=== PATIENT | female | born 1995 | race Caucasian/White ===

== ENCOUNTER 2024-06-19 16:32 | Emergency (ER) | payer BC, SELFPAY ==
[2024-06-19 16:48] VITALS: BP 137/91; PULSE 94; RESP 18; TEMP 37.2; O2SAT 95; BMI 37.9
--- NOTE | 2024-06-19 16:48 | ED_ITS ---
HPI - General Adult General Date Seen: 06/19/24 Chief complaint: Diabetic Related Problem Stated complaint: Low blood sugar throughout the day. Time Seen by Provider: 06/19/24 16:44 History of Present Illness HPI narrative: 28-year-old female with a past medical history of elevated BMI, PCOS, depression/anxiety, snoring, hyperhidrosis, it try adenitis a pretty the. She is on some Mag low tide and metformin. It looks like she gets primary care through the [facility]. Records from [facility] show that she called the [facility] triage nurse. She was feeling dizzy and shaky today. She has a glucometer. It red glucose of 45 and then 54. She apparently has type 2 diabetes. She is on metformin and Ozempic. She does not think she is . She apparently had low blood sugar around noon so ate some fruit and drink juice. Blood sugar dropped low again around 1. She has never had low blood sugar readings before. She is actually due to change her CGM monitor in 3 days. She was feeling normally this morning and actually was giving a big presentation. At around 11:30 a.m. just after fishing her presentation, she was feeling fine but her CGM alerted her that her sugar was 54. She ate some berries and had some juice. Subsequently her CGM reported that her blood sugar was still running a bit low. She ate some lunch and sugar did come up. Just before lunch she started to feel little bit dizzy and shaky, but she is not sure if that shakiness was from low blood sugar or if it was just from adrenaline wearing off after presentation. Later this afternoon around 330 or so her CGM again alerted her that her sugar was low. She recalls that was she was feeling fine before this EG M alert but after it she began to feel dizzy and shaky. She had some sweet treat since juice again and her sugar came up but then dropped down again to about 45 or 50. She called her clinic and was told to come here to the ER with concern for hypoglycemia. She has been on Ozempic and metformin for weight control. She is not actually diabetic but she is prediabetic. She does not take any insulin or any other diabetes medicines that would cause hypoglycemia. She has been healthy and well lately. No recent illness, cough, fever, shortnes s of breath, chest pain, vomiting, diarrhea, or any unusual symptoms. Related Data Home Medications ?Medication ?Instructions ?Recorded ?Confirmed citalopram 20 mg tablet 20 mg PO DAILY 06/19/24 06/19/24 metformin 500 mg tablet 500 mg PO DAILY 06/19/24 06/19/24 omeprazole 20 mg capsule,delayed 20 mg PO DAILY 06/19/24 06/19/24 release oxybutynin chloride 5 mg 5 mg PO DAILY 06/19/24 06/19/24 tablet,extended release 24 hr semaglutide 2 mg/dose (8 mg/3 mL) 2 mg subcut QWEEK 06/19/24 06/19/24 subcutaneous pen injector (OzempNephros) Allergies Allergy/AdvReac Type Severity Reaction Status Date / Time azithromycin AdvReac Intermediate Nausea Verified 06/19/24 16:45 oxycodone AdvReac Intermediate Nausea Verified 06/19/24 16:45 PFSH PFSH Social History Smoking Status: Never smoker How often do you have a drink containing alcohol: monthly or less AUDIT-C Alcohol total score: 1 Non-prescribed substance use: denies use service: No Exam Narrative: Exam Narrative: Constitutional: Appears well-developed and well-nourished. Alert. Conversant. Non toxic. HENT: Head: Atraumatic. Nose: Nose normal. Mouth/Throat: Oral mucosa is clear and moist. no trismus. Pharynx normal. Tonsils symmetric. No tonsillar enlargement, erythema, or exudate. Eyes: Conjunctivae normal. EOM normal. Pupils equal, round, and reactive to light. No scleral icterus. Neck: Normal range of motion. Neck supple. No tracheal deviation present. Cardiovascular: Normal rate, regular rhythm. No gallop. No friction rub. No murmur heard. Symmetric radial artery pulses Pulmonary/Chest: Effort normal. No stridor. No respiratory distress. No wheezes. No rales. No rhonchi . No tenderness. Abdominal: Soft. No distension. No mass. No tenderness. No rebound. No guarding. Musculoskeletal: RUE: Normal range of motion. No tenderness. No deformity LUE: Normal range of motion. No tenderness. No deformity RLE: Normal range of motion. No edema. No tenderness. No deformity LLE: Normal range of motion. No edema. No tenderness. No deformity Neurological: Alert and oriented to person, place, and time. Normal strength. CN II-VII intact. No sensory deficit. GCS eye subscore is 4. GCS verbal subscore is 5. GCS motor subscore is 6. Normal coordination Skin: Skin is warm and dry. No rash noted. No pallor. Normal capillary refill. Psychiatric: Normal mood. Normal affect. Very polite. Says she feels a little bit anxious and shaky. Const: Vital Signs, click to edit/add: Vital Signs - 24 hr 06/19/24 16:48 Temperature 98.9 F Pulse Rate [Pulse Oximeter] 94 Respiratory Rate 18 Blood Pressure [Ri t Upper Arm] 137/91 H Pulse Oximetry 95 Oxygen Delivery Me thod Room Air Course Course ED Course: When the patient arrived her CGM was reporting sugar 109 but she still was a little bit shaky, probably due to anxiety, she thought. Had the nurses do a fingerstick glucose some multi any easily with a lab draw glucose and with the reading from her CGM. CGM red 191, fingerstick glucose red 180. Later in the ER course her lab a serum glucose was 203. A few minutes after she had her CGM reading of 191, CGM reading dropped to 130. This seems like a very rapid drop, dropping 60 points in a few minutes. Patient remained unchanged in terms of symptoms. I had the nurse repeat a fingerstick glucose and it read 171. Clearly this is not correlate with her CGM. I think the monitors probably giving Sensor errors. Vital Signs Vital signs: Initial Vital Signs Temperature 98.9 F 06/19/24 16:48 Temperature Source Temporal Artery Scan 06/19/24 16:48 Pulse Rate 94 06/19/24 16:48 Respiratory Rate 18 06/19/24 16:48 Blood Pressure 137/91 H 06/19/24 16:48 Blood Pressure Mean 106 H 06/19/24 16:48 Pulse Oximetry 95 06/19/24 16:48 Oxygen Delivery Method Room Air 06/19/24 16:48 Vital Signs Temperature 98.9 F 06/19/24 16:48 Pulse Rate 94 06/19/24 16:48 Respiratory Rate 18 06/19/24 16:48 Blood Pressure 137/91 H 06/19/24 16:48 Pulse Oximetry 95 06/19/24 16:48 Oxygen Delivery Method Room Air 06/19/24 16:48 Temperature 98.9 F 06/19/24 16:48 Pulse Rate 94 06/19/24 16:48 Respiratory Rate 18 06/19/24 16:48 Blood Pressure 137/91 H 06/19/24 16:48 Pulse Oximetry 95 06/19/24 16:48 Oxygen Delivery Method Room Air 06/19/24 16:48 Medical Decision Making MDM Narrative Medical decision making narrative: Patient presented for low blood sugar readings on her continuous glucose monitor that occurred today. Curiously she is not really on medications at typically are thought to cause hypoglycemia. She is on Ozempic and metformin which typically do not cause low sugar. She has no recent illness or other reason for her to be hypoglycemic. Patient was observed and had serial blood sugar monitoring checks here in the ER. She remained essentially asymptomatic except for mildly anxious about her low blood sugar readings. Ultimately, she attributes the dizziness to anxiety, rather than hypoglycemia. I think she is correct. CGM was reading 109 when she arrived and then went up to about 193 without her consuming a glucose source. At this time we did measure a fingerstick glucose which was about 180 and and do a lab draw serum glucose which came back at 2:03 a.m.. Within a few minutes after having the reading of 190 her CGM dropped down to with a reading of 133. She remains asymptomatic. I had the nurses double check a fingerstick glucose at this time and sugar was actually 177, not 133. I think with the wild swing in the CGM reading and discordant reading from her fingerstick, it seems that this is probably a monitor malfunction rather than true hypoglycemia. She actually is a little bit hyperglycemic with sugar ranging 170 up to 200 which I think correlates with her consuming a lot of extra sugar this afternoon because of her low readings. There is no evidence for DKA or nonketotic hyperosmolar state. Patient is comfortable with plan for discharge home. She will change her CGM under tonight when she gets home and monitor carefully. If she does have any recurrent symptoms or low reading she will return to the ER right away. She will follow-up with her doctor on Saturday for recheck. Lab Data Labs: Lab Results 06/19/24 Range/Units 17:25 Sodium 134 L (135-149) mmol/L Potassium 3.6 (3.6-5.1) mmol/L Chloride 101 (96-114) mmol/L Carbon Dioxide 20 (20-32) mmol/L Anion Gap 13 (7-15) mEq/L BUN 4 L (5-24) mg/dL Creatinine 0.6 (0.5-1.5) mg/dL Estimated Creat Clear 119.47 Estimated GFR 125 ml/min Glucose 203 H (60-115) mg/dL Calcium 9.3 (8.4-10.6) mg/dL Discharge Plan Discharge Clinical Impression: Dizziness Patient Disposition: Home, Self-Care Condition: Stable Instructions: Dizziness (ED) Additional Instructions: At this time it looks like your lip low blood sugar readings were due to a malfunction of your continuous glucose monitor. Please change her sensor tonight when you get home and set up with your monitor/phone. Monitor sugars for the next few days. , please recheck with your regular doctors upon on Saturday. If you have more spells of dizziness, or more low blood sugar readings, please eat a sugary snack, and come to the ER to be rechecked. Prescriptions: No Action Ozempic 2 mg/dose (8 mg/3 mL) pen injector 2 mg subcut QWEEK oxybutynin chloride 5 mg tablet extended release 24hr 5 mg PO DAILY metformin 500 mg tablet 500 mg PO DAILY omeprazole 20 mg capsule,delayed release(DR/EC) 20 mg PO DAILY citalopram 20 mg tablet 20 mg PO DAILY Follow Up/Referrals: Provider,Not a Local [Primary Care Provider] - Stand Alone Forms: [facility] Info Instructions
--- OUTSIDE RECORDS SUMMARY | 2024-06-19 17:29 | XMS_ITS | Clinical Summary ---
Author Organization [facility] Address [address] [place] [address] Phone Care Team Providers Care Marketing Support Specialist Name Role Phone Elsewhere, Pcp Primary Care Provider Unavailabl e Allergies Active Allergy Reactions Criticality Noted Date Comments Oxycodone Other Low 05/09/2020 Nausea and vomiting Medications CLINDAMYCIN HCL 300 MG OR CAPS 1 tablet po three times a day for 10 days qs 0 7 Active minocycline (MINOCIN, DYNACIN) 100 MG capsule Take 1 Cap by mouth one time a day. Take with adequate amounts of water. 28 Cap 1 Active loratadine (Claritin) 10 MG capsule Take 10 mg by mouth one time a day. Take on an empty stomach. Active oxybutynin (Ditropan) 5 MG tablet Take 5 mg by mouth three times a day. Active citalopram (CeleXA) 20 MG tablet Take 20 mg by mouth one time a day. Active ethinyl estradiol-etono gestrel (Nuvaring) 0.12-0.015 MG/24HR vaginal insert Insert 1 Each into the vagina SEE ADMIN INSTR. Leave in place for 3 weeks, remove for 1 week and repeat cycle Active fluticasone propionate (Flonase) 50 MCG/ACT nasal spray Place 2 Sprays into both nostrils one time a day. Shake gently before each use; alternate nostrils with each spray. Active mometasone (Nasonex) 50 MCG/ACT nasal spray Place 2 Sprays into both nostrils one time a day. 17 g 11 1 Active metFORMIN-XR (Glucophage-XR) 500 MG 24 hour tablet Take 500 mg by mouth one time a day. 3 Active Active Problems Problem Noted Date Diagnosed Date Anal skin tag 08/03/2022 Myopia 08/21/2007 Hypertrophy of tonsils with hypertrophy of adeno ids 07/11/2005 Overview (02/21/2015): IMO Update Immunizations Name Administration Dates Next Due DTP Hib combination 12/09/1995,02/06/1995,1994, 9 95 DTaP <7 years 11/03/1999 Hepatitis B, Pediatric/adolescent 02/06/1995,,1994 Human Papilloma Virus Quadrivalent 04/01/2007,,09/25/2006 IPV 11/03/1999 MMR 11/03/1999,12/09/1995 OPV (Historic Use Only) 02/06/1995,1994, Tdap (7 years and older) 09/25/2006 Varicella (Varivax) 09/25/2006,12/16/1998 meningococcal MCV4P (Menactra) 09/25/2006 Surgical History Surgery Date Site/Laterality Comments HAND/FINGER SURGERY UNLISTED 07/25/2004 Exploration, debridement, closure of complex nailbed lacerations and closure of skin tips of index and middle fingers left hand. Medical History Medical History Date Comments Unspecified otitis media 07/25/2004 Tubes p laced Acute tonsillitis 07/25/2004 Recurrent Unspecified constipation 06/19/2002 Streptococcal sore throat 06/12/2001 Family History Medical History Relation Comments Cardiovascular Disease Father had stent s placed- Coronary Artery Disease Diabetes Other Grandmother Cardiovascular Disease Paternal Grandfather dece ased age 35- [place] Relation Status Comments Father Other Paternal Grandfather Social History Tobacco Use Types Packs/Day Years Used Date Smoking Tobacco: Passive Smo [place] Exposure - Never Smoker Smokeless Tobacco: Never Alcohol Use Standard Drinks/Week Comments Not Asked 0 (1 standard drink = 0.6 oz pur e alcohol) Comments No Sex and Gender Information Value Date Recorded Sex Assigned at Not on file Legal 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 Gender Identity Not on file Sexual Orientation Not on file Obstetrics History Last Filed Vital Signs Vital Sign Reading Time Taken Comments Blood Pressure 127/82 08/03/2022 11:26 AM CDT Pulse 91 08/03/2022 11:26 AM CDT Temperature 37.1 C (98.8 F) 05/09/2020 8:14 AM COMPOSITION PROFESSOR Respiratory Rate 16 08/03/2022 10:4 4 AM CDT Oxygen Saturation 97% 05/09/2020 8:14 AM COMPOSITION PROFESSOR Inhaled Oxygen Concentration - - Weight 109.5 kg (241 lb 6.5 oz) 05/09/2020 8:14 AM COMPOSITION PROFESSOR Height 163.8 cm (5' 4.5) 05/09/2020 8:14 AM COMPOSITION PROFESSOR Body Mass Index 40.8 05/09/2020 8:14 AM COMPOSITION PROFESSOR Plan of Treatment Health Maintenance Due Date Last Done Comments Cervical Cancer Screening 1994 Last pap w/ HPV Testing 1994 Last pap w/o HPV Testing 1994 TETANUS (Standing Order) 09/25/2016 007, 11/03/1999, 12/09/1995, Additional history exists COVID-19 Vaccine (2023- season) 2023 Influenza Vaccine Seasonal (Standing Order) (#1) 2023 Hepatitis B Vaccine (Standing Order) Completed 02/06/1995, 1994, 1994 PERTUSSIS (Standing Order) Completed 09/25/2006, HPV Vaccine (Standing Order) Completed 04/01/2007, 11/26/2006, 09/25/2006 Pneumococcal/PCV20 Vaccine: Pediatrics (2-5 yrs) and At-Risk Patients (6-49 yrs) (Standing Order) Aged Out No longer eligible based on patient's age to complete this topic Insurance [address] [place] [id number] [facility] MRT-11/22/15 [id number] [place] [address] MRT-11/22/15 [id number] [place] [address] Advance Directives For more information, please contact: [phone] * No Code Status (Latest Code Status on File) Date Activated Date Inactivated Comments 03/05/2003 8:08 AM 03/05/2003 8:08 AM Care Teams Marketing Support Specialist Relationship Specialty Start Date End Date Elsewhere, Pcp PCP - General 01/05/13
--- OUTSIDE RECORDS SUMMARY | 2024-06-19 17:29 | XMS_ITS | Clinical Summary ---
Author Organization [employer] [facility] Address [facility] [place] [address] Care Team Providers Care Rn Navigator Name Role Phone Rula Hanley Unavailable Malu Kennedy MD Primary Care Provider Allergies Active Allergy Reactions Criticality Noted Date Comments Oxycodone Taste, Changes 11/03/2014 Azithromycin Vomiting 01/19/2011 Vomiting and abdominal pain. Has happened twice. Medications loratadine (CLARITIN) 10 mg tablet 08/04/19 15 Active citalopram (CELEXA) 20 mg tablet Take 20 mg by mouth once daily. Active EPINEPHrine (EPIPEN) 0.3 mg/0.3 mL auto-injector Inject 1 Pen intramuscular each time if needed for Anaphylaxis. 07/19/19 24 Active Haloette vaginal ring Insert 1 Ring into the vagina every 4 weeks. Active omeprazole (PRILOSEC) 20 mg Delayed-Release capsule Take 20 mg by mouth once daily before a meal. 12/03/19 24 Active FreeStyle Jaky 3 [place] for continuous blood glucose monitor (CGM)Indications :Type 2 diabetes mellitus without complication, without long-term current use of insulin (HC) To be used to read blood sugars follow canvas baster directions. 1 Each 01/08/20 24 Active FreeStyle Jaky 3 Plus Sensor for continuous blood glucose monitor (CGM)Indications :Type 2 diabetes mellitus without complication, without long-term current use of insulin (HC) To be used to read blood sugars, follow canvas baster directions. 6 Each 3 01/08/20 24 Active oxybutynin (DITROPAN) 5 mg tabletIndication s:Hyperhidrosis Take 1 Tablet (5 mg) by mouth once daily. 100 Tablet 3 02/28/20 24 Active semaglutide (Ozempic) 2 mg/dose (8 mg/3 mL) subcutaneous penIndications:T ype 2 diabetes mellitus without complication, without long-term current use of insulin (HC) Inject 2 mg subcutaneous once weekly. 3 Pen 3 04/17/19 25 Active spironolactone (ALDACTONE) 50 mg tablet Take 50 mg by mouth. 03/23/19 25 Active metFORMIN (GLUCOPHAGE XR) 500 mg Extended-Release tabletIndication s:PCOS (polycystic ovarian syndrome) Take 1 Tablet (500 mg) by mouth once daily. 100 Tablet 3 05/06/19 25 Active Active Problems Problem Noted Date Diagnosed Date Cervical cancer screening 01/16/2024 Overview (01/16/2024): 01/2024 NIL/HPV negative Plan: HPV-based testing due 01/2029 Anxiety 12/16/2023 PCOS (polycystic ovarian syndrome) 12/16/2023 Hidradenitis suppurativa 12/16/2023 Hyperhidrosis 12/16/2023 Myopia of both eyes with astigmatism 10/28/2015 Obesity (BMI 30-39.9) 06/03/2015 Major depressive disorder, single episode, moder ate 08/13/2014 Allergic rhinitis, cause unspecified 09/24/2011 Overview (09/24/2011): Saw staff development coordinator rn 09/21/11. + skin testing to dust mites, grass, two trees, and two weeds. Recommended daily flonase and dust avoidance measures. If not improving, recommend re-evaluation with ENT to consider T&A. Also good candidate for immunotherapy if requested in future, per staff development coordinator rn recommendations. Tonsillar hypertrophy 09/18/2011 Overview (09/19/2011): Saw Dr. Aviles 09/18/11, ENT. Plan for Tonsillectomy, possible adenoidectomy. Snoring 09/18/2011 Body mass index, pediatric, greater than or equal to 95th percentile for age 0103/21/2011 Overview (03/21/2011): High fasting insulin level. Saw pediatric endocrine 03/02/11. Recommend continued focus on diet & exercise. Vitamin D deficiency 03/21/2011 Overview (03/21/2011): Saw endocrine 03/02/11 for high BMI and high fasting insulin level. Also recommended 1000mg Vit D per day for low Vit D. Other specified viral warts 07/06/2010 Other acne 05/18/2010 Overview (06/20/2011): Followed by [facility], Dr. Leandra Aguila. 06/2011 oral amoxicillin BID, differin 0.3% qhs, Duac Qam, and oral contraceptive pills. Resolved Problems Problem Noted Date Diagnosed Date Resolved Date Myopia 05/08/2010 10/28/2015 Encounters Date Type Department Care Team Description 06/19/2024 Nurse Triage [facility] [address] [place] [address] Malu Kennedy MD Low Blood Sugar 05/15/2024 10:40 AM CDT Office Visit [facility] [address] [place] [address] Peyton Crenshaw, AVELINA Eye Exam (Diabetic) 05/15/2024 Travel 05/06/2024 Travel 04/18/2024 10:55 AM SENIOR UI UX DESIGNER Office Visit [facility] [address] [place] [address] David Hawthorne PA Skin Problem (Right AC) 04/18/2024 Nurse Triage [facility] [address] [place] [address] Malu Kennedy MD Arm Pain/problem 04/17/2024 10:45 AM SENIOR UI UX DESIGNER Office Visit [facility] [address] [place] [address] Malu Kennedy MD Diabetes 04/17/2024 Travel 04/15/2024 Travel 03/31/2024 Refill [facility] [address] [place] [address] Malu Kennedy MD Refill Request (Ozempic) from Last 3 Months Immunizations Immunization Administration Dates Next Due DTaP 11/03/1999, 6,02/06/1995,12/13,1994 Hepatitis A (Peds) 04/30/2012,12/22/2010 Hepatitis B (Peds) 02/06/1995,1994, 995 Hib Conjugate, Unspecified 12/09/1995,,1994,10/17 Human Papilloma Virus Vaccine 04/01/2007, 007,09/25/2006 Inactivated Polio Vaccine 11/03/1999,08/1994,1994,10/17 Influenza, IIV3 (Age >=3 years) 01/28/2013,03/24,12/22/2010 Influenza, IIV4 04/02/2019,11/25/2017,10/27/2015 MENINGOCOCCAL VACCINE 2 VIAL [id number] (MENVEO) 09/25/2010 MMR 10/23/2006,11/03/1999,12/09/1995 Meningococcal Vaccine (Menactra) 09/25/2006 Tdap 04/12/2016,09/25/2006 Varicella Vaccine 04/30/2012,09/25/2006,12/16/18 99 Family History Medical History Relation Name Comments Heart Disease Father CO's, first in ; has stents now Cancer-breast Maternal Grandmother Tomasa Montgomery Heart Disease Paternal Grandfather o f early heart attack Diabetes Paternal Grandmother NA Other Sister prediabetes Relation Name Status Comments Father Maternal Grandmother Tomasa Montgomery Paternal Grandfather Paternal Grandmother NA Sister Social History Tobacco Use Types Packs/Day Years Used Date Smoking Tobacco: Never Smokeless Tobacco: Never Tobacco Cessation:Counseling Given: Yes Alcohol Use Standard Drinks/Week Comments Yes 0 (1 standard drink = 0.6 oz pur e alcohol) minimal PHQ-2 Answer Date Recorded PHQ-2 TOTAL SCORE 0 01/08/2024 Social Connections Answer Date Recorded Do you often feel lonely or isolated from those around you? 0 12/11/2023 Financial Resource Strain Answer Date R ecorded Difficulty of Paying Living Expenses 3 12/16/2023 Difficulty of Paying Living Expenses Not on file 12/16/2023 Food Insecurity Answer Date Recorded Do you worry your food will run out before you are able to buy more? 1 12/11/2023 Transportation Needs Answer Date Record ed Does lack of transportation keep you from medica l appointments? 1 12/11/2023 Does lack of transportation keep you from work, meetings or getting things that you need? 1 12/11/2023 Housing Stability Answer Date Recorded What is your housing situation today? 1 12/11/2023 Utilities Answer Date Recorded Do you have trouble paying f or utilities (for example, heat, electricity, water, phone)? 1 12/11/2023 Comments No Sex and Gender Information Value Date Recorded Sex Assigned at Not on file Legal Sex Female 8:04 AM SENIOR UI UX DESIGNER Gender Identity Not on file Sexual Orientation Not on file Obstetrics History Last Filed Vital Signs Vital Sign Reading Time Taken Comments Blood Pressure 123/79 04/18/2024 11:03 AM SENIOR UI UX DESIGNER Pulse 90 04/18/2024 11:03 AM SENIOR UI UX DESIGNER Temperature 36.4 C (97.6 F) 04/18/2024 11:03 AM SENIOR UI UX DESIGNER Respiratory Rate 18 04/18/2024 11:03 AM SENIOR UI UX DESIGNER Oxygen Saturation 96% 04/18/2024 11:03 AM SENIOR UI UX DESIGNER Inhaled Oxygen Concentration - - Weight 100.7 kg (222 lb) 04/17/2024 11:01 AM SENIOR UI UX DESIGNER Height 162.6 cm (5' 4) 01/08/2024 3:31 PM SENIOR UI UX DESIGNER Body Mass Index 38.11 01/08/2024 3:31 PM SENIOR UI UX DESIGNER Plan of Treatment Health Maintenance Due Date Last Done Comments HIV for age 15-65 2009 Hepatitis C screening for ag e 18-79 2012 Pneumococcal series for age 6-49 (1 of 2 - PCV) 2013 COVID-19 vaccine series ( season) 2023 03/24/2021, 07/03/2020, 06/06/2020 Influenza Vaccine (Season Ended) 2024 04/02/2019, 11/25/2017, 10/27/2015, Additional history exists BMI (ht and wt on same day) for age 18+ 01/07/2025 01/08/2024, 10/27/2015, 06/03/2015 Depression screening for age 12+ 01/08/2025 01/09/2024, 01/08/2024, 10/27/2015, Additional history exists Tetanus booster 04/12/2026 04/12/2016, 09/25/2006 Pap test for age 21-65 01/07/2029 01/08/2024 Hepatitis B series for Diabetes Completed 02/06/1995, 1994, 1994 Tdap Completed 04/12/2016, 09/25/2006 Procedures Procedure Name Priority Date/Time Associated Diagnosis Comments HEMOGLOBIN A1C MONITORING (POCT) Routine 04/17/2024 10:21 AM SENIOR UI UX DESIGNER Type 2 diabetes mellitus without complication, without long-term current use of insulin (HC) COMP METABOLIC PANEL Routine 04/17/2024 10:19 AM SENIOR UI UX DESIGNER Type 2 diabetes mellitus without complication, without long-term current use of insulin (HC) ORDER MAKE UP CLERK THIN PREP PAP AND HPV DNA - AGE 25 AND OVER ([facility]) Routine 01/08/2024 4:39 PM SENIOR UI UX DESIGNER Screening for cervical cancer from Last 3 Months or Most Recently Relevant to Health Maintenance Results * (ABNORMAL) POCT Hemoglobin A1C Monitoring (04/17/2024 10:21 AM SENIOR UI UX DESIGNER) POC HEMOGLOBIN A1C 9.4(H) <6.0 % OF TOTAL HGB [facility] Comment: Any point of care results exhibiting inconsistency with the patient's clinical status should be repeated using a different testing method. Blood BLOOD SPECIMEN / Unknown 04/17/2024 10:21 AM SENIOR UI UX DESIGNER 04/17/2024 10:22 AM SENIOR UI UX DESIGNER Narrative [facility] - 04/17/2024 10:45 AM SENIOR UI UX DESIGNER FASTING:NO FASTING: NO us Malu Kennedy MD CHEMISTRY Final Resul t [facility] [address] [place] [address], [facility] [address] [place] [address] * (ABNORMAL) COMP METABOLIC PANEL (04/17/2024 10:19 AM SENIOR UI UX DESIGNER) GLUCOSE 203(H) 65 - 139 mg/dL [facility] Comment: Non-fasting reference interval UREA NITROGEN (BUN) 10 7 - 25 mg/dL [facility] CREATININE 0.65 0.50 - 0.96 mg/dL [facility] EGFR 122 > OR = 60 mL/min/1. 73m2 [facility] BUN/CREATININE RATIO SEE NOTE: 6 - (calc) [facility] Comment: Not Reported: BUN and Creatinine are within reference range. SODIUM 135 135 - 146 mmol/L [facility] POTASSIUM 4.5 3.5 - 5.3 mmol/L [facility] CHLORIDE 99 98 - 110 mmol/L [facility] CARBON DIOXIDE 23 20 - 32 mmol/L [facility] CALCIUM 9.9 8.6 - 10.2 mg/dL [facility] PROTEIN, TOTAL 7.0 6.1 - 8.1 g/dL [facility] ALBUMIN 4.3 3.6 - 5.1 g/dL [facility] GLOBULIN 2.7 1.9 - 3.7 g/dL (calc) [facility] ALBUMIN/GLOBULIN RATIO 1.6 1.0 - 2.5 (calc) [facility] BILIRUBIN, TOTAL 0.3 0.2 - 1.2 mg/dL [facility] ALKALINE PHOSPHATASE 93 31 - 125 U/L [facility] AST 16 10 - 30 U/L [facility] ALT 18 6 - 29 U/L [facility] Blood BLOOD SPECIMEN / Unknown 04/17/2024 10:19 AM SENIOR UI UX DESIGNER 04/17/2024 10:20 AM SENIOR UI UX DESIGNER Narrative [facility] - 04/18/2024 4:04 AM SENIOR UI UX DESIGNER FASTING:NO FASTING: NO us Malu Kennedy MD CHEMISTRY Final Resul t [facility] [address] [place] [address], [place] [phone] [employer] [facility] [address] [place] [address] * ORDER MAKE UP CLERK THIN PREP PAP AND HPV DNA REFLEX HPV 16/18 - AGE 25 AND OVER ([employer]) [[id number]] (01/08/2024 4:39 PM SENIOR UI UX DESIGNER) CLINICAL INFORMATION [facility] [employer] [facility] Comment:None given LMP [employer] [facility] Comment:HORMONE SUPPRESSED PREV. PAP [employer] [facility] Comment:UNSURE PREV. BX [employer] [facility] Comment:UNSURE SOURCE ORDER MAKE UP CLERK [facility] [employer] [facility] Comment:Cervix STATEMENT OF ADEQUACY [facility] [employer] [facility] Comment: Satisfactory for evaluation. Endocervical/transformation zone component absent. INTERPRETATION/RESU LT [employer] Comment: Cytology Results: Negative for intraepithelial lesion or malignancy. COMMENT [facility] [employer] [facility] Comment: This case could not be evaluated with computer assisted technology. The slide was manually screened according to routine procedures. DAIRY PROCESSING SUPERVISOR [facility] Comment: ESW, CT (ASCP) CT Screening location: [address] [address] THINPREP TIS PAP ALWAYS MESSAGE [employer] Comment: EXPLANATORY NOTE: The Pap is a screening test for cervical cancer. It is not a diagnostic test and is subject to false negative and false positive results. It is most reliable when a satisfactory sample, regularly obtained, is submitted with relevant clinical findings and history, and when the Pap result is evaluated along with historic and current clinical information. HPV HIGH RISK Not Detected NOT DETECTED [employer] [facility] Comment: Not Detected High Risk HPV types (16,18,31,33,35,39,45,51,52, 56,58,59,66,68) were not detected. Other HPV types which cause anogenital lesions may be present. The significance of the other types of HPV in malignant processes has not been established. Methodology: Real Time PCR Other (Cervical) 01/08/2024 4:39 PM SENIOR UI UX DESIGNER 01/09/2024 3:18 AM SENIOR UI UX DESIGNER Malu Kennedy MD PATHOLOGY/CYTOLOGY Final Re sult [facility] [address] [place] [address], [facility] [address] [place] [address] from Last 3 Months or Most Recently Relevant to Health Maintenance Insurance [facility] Advance Directives * Full Code (Latest Code Status on File) Date Activated Date Inactivated Comments 10/11/2014 3:41 PM 10/12/2014 1:25 PM Care Teams Rn Navigator Relationship Specialty Start Date End Date [place] [address] PCP - General Family Practice 04/17/24 Rula Hanley [address] [place] [id number] Pattern Setter Registered Nurse - Pattern Setter 01/20/24
[2024-06-19 17:50] LABS: Chloride* 101 mmol/L (96-114); Sodium* 134 mmol/L (135-149)
[2024-06-19 17:51] LABS: Potassium* 3.6 mmol/L (3.6-5.1)
[2024-06-19 17:53] LABS: Blood Urea Nitrogen* 4 mg/dL (5-24); Creatinine* 0.6 mg/dL (0.5-1.5); Est. Creatinine Clearance* 119.47; Estimated Glomerular Filt Rate 125 ml/min
[2024-06-19 17:54] LABS: Anion Gap 13 mEq/L (7-15); Calcium* 9.3 mg/dL (8.4-10.6); Carbon Dioxide* 20 mmol/L (20-32); Glucose* 203 mg/dL (60-115)
== END 2024-06-19 18:31 | disposition home or self-care (01) ==
PROVIDERS: Emergency Provider Emergency Medicine
DX: R42 Dizziness and giddiness (principal); E11.9 Type 2 diabetes mellitus without complications; Z79.85 Long-term (current) use of injectable non-insulin antidiabetic drugs; Z79.84 Long term (current) use of oral hypoglycemic drugs
CPT/HCPCS: 36415; 80048; 82947; 82962; 99283